=== PATIENT | male | born 1985 | race Asian ===

== ENCOUNTER 2023-01-03 17:13 | Emergency (ER) | payer OTHER ==
[~2023-01-03] VITALS: Ht 170.2 cm; Wt 76.2 kg
--- NOTE | 2023-01-03 18:05 | NUR ---
Patient complained cough for a month. He complaind chest pain without radiation for the past few days. Denied any shoulder pain or numbness over left arm.
[2023-01-03 18:19] VITALS: BP_SYST 124
--- NOTE | 2023-01-03 18:21 | NUR ---
IV line is inserted on left hand #20 with all labs taken.
[2023-01-03 18:22] LABS: BASOPHILS % (AUTO) 0.6 % (0.0-2.0); EOSINOPHILS % (AUTO) 2.5 % (0.0-6.0); HEMATOCRIT 40 % (39-51); HEMOGLOBIN 12.9 g/dL (13.5-17.5); LYMPHOCYTES # (AUTO) 1.9 K/uL (0.8-4.8); LYMPHOCYTES % (AUTO) 32.5 % (20.0-44.0); MEAN CORPUSCULAR HGB CONC 32 g/dl (31.0-36.0); MEAN CORPUSCULAR VOLUME 86 fL (80-96); MONOCYTES # (AUTO) 0.6 K/uL (0.1-1.30); MONOCYTES % (AUTO) 9.7 % (2.0-12.0); NEUTROPHILS # (AUTO) 3.3 K/uL (1.8-8.9); NEUTROPHILS % (AUTO) 54.7 % (43.0-81.0); PLATELET COUNT (AUTO) 197 K/uL (150-450); RED BLOOD CELL COUNT(AUTO) 4.61 MIL/uL (4.5-6.0)
[2023-01-03 18:35] LABS: CALCIUM, SERUM 8.9 mg/dL (8.5-10.1); CARBON DIOXIDE 29 mmol/L (21-32); CHLORIDE 106 mmol/L (98-107); CREATININE 1.1 mg/dL (0.6-1.3); GLUCOSE 90 mg/dL (74-106); POTASSIUM 3.9 mmol/L (3.5-5.1); SODIUM SERUM 141 mmol/L (136-145); UREA NITROGEN, BLOOD 14 mg/dL (7-18)
[2023-01-03] MEDS ORDERED: IBUP-1953 PO (19:25)
[2023-01-03] MEDS ORDERED: BENZ-13 PO (19:25)
--- NOTE | 2023-01-03 20:04 | NUR ---
Patient discharged to home in stable condition. Written and verbal after care instructions given. Patient verbalizes understanding of instruction.
[2023-01-03 20:11] VITALS: BP_DIAS 152
== END 2023-01-03 20:12 | disposition home or self-care (01) ==
LOC: ER 17:25
DX: J40 Bronchitis, not specified as acute or chronic (principal); R07.81 Pleurodynia; Z79.899 Other long term (current) drug therapy
CPT/HCPCS: 36415; 71045-TC; 80048-TC; 84484-TC; 85025-TC